=== PATIENT | male | born 1965 | race Caucasian/White ===

== ENCOUNTER 2018-12-30 05:40 | Inpatient (IN) | payer MEDICAID, OTHER ==
[~2018-12-30] VITALS: Ht 185.4 cm; Wt 102.2 kg
[~2018-12-30 05:40] MED LIST: ACET500C5 PO; AMOX500C2 PO; CIPR500T4 PO; IBUP800T48 PO
[2018-12-30] MEDS ORDERED: ONDANSETRON 4 MG INJ IV STA (06:20)
[2018-12-30] MEDS ORDERED: SODIUM CHLORIDE 0.9% 1L BAG IV* STA (06:20)
[2018-12-30] MEDS ORDERED: KETOROLAC 30 MG INJ IV STA (06:20)
[2018-12-30] MEDS ORDERED: SOD CHLORIDE 0.9% 100 ML ONE (07:17)
[2018-12-30] MEDS ORDERED: IOHEXOL 300MG/ML 150 ML BTL ONE (07:17)
[2018-12-30] MEDS ORDERED: CEFTRIAXONE 1 GM/50 ML (PMX) 50 ML IVPB ONE (08:30)
--- NOTE | 2018-12-30 08:42 | ERD ---
ER Documentation Chief Complaint Chief Complaint CHILLS, GENERALIZED BODY PAIN, FEVER, TESTICULAR PAIN XTODAY HPI 53-year-old male presenting with fevers and chills. Patient is testicular pain bilaterally with some mild abdominal pain. No vomiting. No change in bowel movement. Last dose of medication was taken 12 hours ago which was Tylenol. Has no cough and no runny nose. Diffuse body aches. Denies medical problems NKDA. Surgical history right knee. Social history smokes cigarettes and marijuana occasionally. ROS All systems reviewed and are negative except as per history of present illness. Allergies Allergies: Coded Allergies: No Known Allergy (Unverified , 12/30/18) PMhx/Soc Medical and Surgical Hx: pt denies Medical Hx History of Surgery: Yes (RIGHT KNEE SURGERY) Anesthesia Reaction: No Hx Neurological Disorder: No Hx Respiratory Disorders: No Hx Cardiac Disorders: No Hx Alcohol Use: No Hx Substance Use: No Hx Tobacco Use: Yes Smoking Status: Current some day smoker FmHx Family History: No diabetes, No coronary disease, No other Physical Exam Vitals Vital Signs Date Temp Pulse Resp B/P (MAP) Pulse Ox O2 O2 Flow FiO2 Time Delivery Rate 12/30/18 100.0 93 18 92/51 (65) 96 Room Air 08:27 12/30/18 102.4 109 19 119/66 98 05:43 (83) Physical Exam GENERAL: The patient is well-appearing, well-nourished, in no acute distress HEENT: Atraumatic. Conjunctivae are pink. Pupils equal, round, and reactive to light. There is no scleral icterus. Tympanic membranes clear bilaterally. Oropharynx clear. No nystagmus or photophobia. NECK: C-spine is soft and supple. There is no meningismus. There is no cervi jerome lymphadenopathy. No JVD. No bruits. No goiter. CHEST: Clear to auscultation bilaterally. There are no rales, wheezes or rhonchi. HEART: Regular rate and rhythm. No murmurs, clicks, rubs or gallops. No S3 or S4. ABDOMEN:Soft, nontender and nondistended. Good bowel sounds. No rebound or gu arding. No gross peritonitis. No gross organomegaly or masses. BACK: No midline or flank tenderness. TESTICULAR: No swelling or erythema to testicles. Mild diffuse tenderness. Result Diagram: 12/30/1862912/30/18629 Results 24 hrs Laboratory Tests Test 12/30/18 06:30 12/30/18 06:31 12/30/18 06:37 White Blood Count 20.6 10^3/ul Red Blood Count 4.99 10^6/ul Hemoglobin 14.8 g/dl Hematocrit 43.0 % Mean Corpuscular Volume 86.2 fl Mean Corpuscular Hemoglobin 29.7 pg Mean Corpuscular 34.4 g/dl Hemoglobin Concent Red Cell Distribution Width 13.1 % Platelet Count 259 10^3/UL Mean Platelet Volume 9.6 fl Immature Granulocytes % 0.500 % Neutrophils % 85.9 % Lymphocytes % 7.4 % Monocytes % 6.1 % Eosinophils % 0.0 % Basophils % 0.1 % Nucleated Red Blood Cells % 0.0 /100WBC Immature Granulocytes # 0.110 10^3/ul Neutrophils # 17.7 10^3/ul Lymphocytes # 1.5 10^3/ul Monocytes # 1.3 10^3/ul Eosinophils # 0.0 10^3/ul Basophils # 0.0 10^3/ul Nucleated Red Blood Cells # 0.0 10^3/ul Prothrombin Time 13.3 Sec Prothrombin Time Ratio 1.0 INR International 1.00 Normalized Ratio Activated Partial Thromboplast 26.8 Sec Time Sodium Level 138 mmol/L Potassium Level 3.8 mmol/L Chloride Level 106 mmol/L Carbon Dioxide Level 22 mmol/L Anion Gap 10 Blood Urea Nitrogen 11 mg/dl Creatinine 1.04 mg/dl Est Glomerular Filtrat > 60 mL/min Rate mL/min Glucose Level 138 mg/dl Calcium Level 9.4 mg/dl Total Bilirubin 1.1 mg/dl Direct Bilirubin 0.00 mg/dl Indirect Bilirubin 1.1 mg/dl Aspartate Amino 22 IU/L Transf (AST/SGOT) Alanine 25 IU/L Aminotransferase (ALT/SGPT) Alkaline Phosphatase 65 IU/L Total Protein 8.2 g/dl Albumin 4.2 g/dl Globulin 4.00 g/dl Albumin/Globulin Ratio 1.05 Lipase 38 U/L Urine Color YELLOW Urine Clarity CLEAR Urine pH 6.0 Urine Specific [place] 1.018 Urine Ketones TRACE mg/dL Urine Nitrite NEGATIVE mg/dL Urine Bilirubin NEGATIVE mg/dL Urine Urobilinogen NEGATIVE mg/dL Urine Leukocyte Esterase 2+ Wilma/ul Urine Microscopic RBC 4 /HPF Urine Microscopic WBC 45 /HPF Urine Mucus FEW /HPF Urine Hemoglobin NEGATIVE mg/dL Urine Glucose NEGATIVE mg/dL Urine Total Protein NEGATIVE mg/dl POC Venous Lactate 1.4 mmol/L Current Medications Medications Dose Sig/[place] Start Time Status Last (Trade) Ordered Route PRN Stop Time Admin Dose Reason Admin Sodium 3,050 ml BOLUS OVER 2 12/30/18 DC 12/30/18 Chloride HOURS STAT 06:20 06:42 (NS) IV* 12/30/18 06:23 Ketorolac 30 mg ONCE STAT 12/30/18 DC 12/30/18 Tromethamine IV 06:20 06:42 (Toradol) 12/30/18 06:23 Ondansetron 2 mg ONCE STAT 12/30/18 DC 12/30/18 HCl (Zofran IV 06:20 06:42 Inj) 12/30/18 06:23 IV Flush 10 ml STK-MED 12/30/18 DC 12/30/18 (NS 10 ml) ONCE .ROUTE 07:17 07:41 12/30/18 07:18 Sodium 100 ml @ ud STK-MED 12/30/18 DC 12/30/18 Chloride ONCE .ROUTE 07:17 07:41 12/30/18 07:18 Iohexol 150 ml STK-MED 12/30/18 DC 12/30/18 (Omnipaque ONCE .ROUTE 07:17 07:41 300mg/ ml) 12/30/18 07:18 Ceftriaxone 50 ml @ ONCE ONCE 12/30/18 Sodium 100 mls/hr IVPB 08:30 12/30/18 08:59 Procedures/MDM DIAGNOSTIC IMAGING REPORT Patient: BALWINDER URBINA : 1965 Age: 53 Sex: M MR #: [id number] DOS: 12/30/18 0620 Ordering MD: SOPHY CHILDERS PA-C Location: [facility] Room/Bed: PROCEDURE: CT ABDOMEN/PELVIS WITH CONTRAST CLINICAL INDICATION: 53-year-old male with bilateral flank pain. TECHNIQUE: The study was performed utilizing a Ozmosispeed VCT 64-slice CT scanner. Direct axial sections were obtained through the abdomen and pelvis wi th the use of 100 cc of Omnipaque-300 nonionic intravenous contrast material. Sagittal and coronal reformations were obtained. One or more of the following dose reduction techniques were utilized: automated exposure control, adjustment of the mA and/or kV according to patient's size and/or use of iterative reconstruction technique. DICOM images are available. The images were reviewed on a PACS workstation. CTD/vol = 20.7 mGy; Total Exam DLP = 1432.02 mGy.cm. COMPARISON: Ultrasound testicular December 30, 2018. FINDINGS: There is minimal bibasilar subsegmental atelectasis. There is no evidence for significant pleural effusion. The liver has a normal size and contour. The liver has diffuse decreased density consistent with fatty infiltration but without focal areas of abnormal density or contrast enhancement. No intrahepatic nor extrahepatic biliary ductal dilatation is seen. There is a lateral gallbladder without evidence for calcified stones, significant wall thickening or pericholecystic fluid. The pancreas is without areas of abnormal attenuation or contrast enhancement. This spleen is identified and has a normal size without abnormal density or contrast enhancement. The adrenal glands are unremarkable. The kidneys are functional bilaterally without abnormal density. No hydroureteronephrosis nor nephroureterolithiasis is evident. The urinary bladder is decompressed. There is no evidence for bowel obstruction. Multiple small diverticula seen throughout the colon most prominently within the sigmoid region without surrounding inflammatory changes. The appendix is visualized and is without edema or surrounding inflammatory reaction. There is no significant free fluid. Phleboliths are present within the pelvis. The prostate is mildly enlarged and heterogeneous measuring approximately 5.1 x 5.3 x 5.8 cm. There are minimal bilateral inguinal hernias containing fat. The aortoiliac vessels are without aneurysmal dilatation. Degenerative changes are seen at L5-S1. IMPRESSION: 1. Hepatic steatosis. 2. No CT evidence for obstructive uropathy or renal calculi. 3. Colonic diverticulosis. 4. No CT evidence for appendicitis. 5. Minimal bilateral inguinal hernias containing fat. 6. Mildly enlarged heterogeneous prostate. 7. Degenerative changes lower lumbar spine. DIAGNOSTIC IMAGING REPORT Patient: BALWINDER URBINA : 1965 Age: 53 Sex: M MR #: [id number] DOS: 12/30/18 0000 Ordering MD: SOPHY CHILDERS PA-C Location: E Room/Bed: PROCEDURE: US Scrotum. CLINICAL INDICATION: Bilateral testicular pain TECHNIQUE: Multiple sonographic images of the scrotal region were obtained utilizing a linear array transducer with grayscale and color-flow and a Doppler imaging. COMPARISON: No prior studies are available for comparison. FINDINGS: The testicles are normal in size with the right measuring 4.34 x 1.88 x 3.26 cm and the left measuring 4.38 x 1.89 x 2.79 cm. The testicular parenchymal echogenicity is normal bilaterally without focal lesions. Flow to both testicles without ultrasonic evidence of testicular torsion. The epididymal heads are normal in size the right measuring the right epididymis is enlarged measuring 1.2 x 0.92 x 2.22 cm and the left epididymis is normal in size measuring 1.0 x 0.82 x 0.73 cm. Within the right epididymal head is a 0.3 cm cyst. No other focal epididymal lesions. No hydroceles or varicoceles demonstrated. IMPRESSION: 1. Normal size testicles without focal lesions and no ultrasonic evidence of testicular torsion. 2. Enlarged right epididymis with 3 mm right epididymal head cyst. No other epididymal lesions bilaterally. 3. No hydroceles or varicoceles demonstrated. ER Course: Blood cultures and urine culture sent. Saline given 30 mgs per kg. on reevaluation's patient's blood pressure was 92/51. This case was discussed with Dr. Smith and there is concern for sepsis so patient will be admitted for IV antibiotics and observation. Toradol given in ED. Rocephin given in ED. Zofran given in ED. MDM: 53-year-old male presenting with fever. Patient exam is concerning for p rostatitis. I have low suspicion for severe sepsis however patient does meet criteria for sepsis and will be admitted for observation higher level of care. Patient is discharged with strict ER precautions and told to follow-up with primary care within 1 to 2 days for close evaluation. All questions answered at admission. I have considered testicular emergency versus other acute abdominal emergencies including but not limited to bowel obstruction septic stone or appendicitis. CT scan is within normal limits. Departure Diagnosis: Primary Impression: Prostatitis Additional Impression: Fever with chills Additional Instructions: FOLLOW UP WITH YOUR PRIMARY CARE PHYSICIAN TOMORROW.Return to this facility if you are not improving as expected. JHONNY CHILDERS PA-C Dec 30, 2018 08:42
[2018-12-30] MEDS ORDERED: NITROGLYCERIN (SL) 0.4 MG TAB SL PRN (12:00)
[2018-12-30] MEDS ORDERED: LORAZEPAM 2 MG INJ IV PRN (12:00)
[2018-12-30] MEDS ORDERED: DOCUSATE SODIUM 100 MG CAP PO PRN (12:00)
[2018-12-30] MEDS ORDERED: HYDROCODONE/APAP (5/325) TAB PO PRN (12:00)
[2018-12-30] MEDS ORDERED: morphine 2 MG INJ IV PRN (12:00)
[2018-12-30] MEDS ORDERED: ONDANSETRON 4 MG INJ IV PRN ×2 (12:00)
[2018-12-30] MEDS ORDERED: hydrALAzine 20 MG INJ IV PRN (12:00)
[2018-12-30] MEDS ORDERED: NACL 0.9% 3 ML SYG IV SCH (12:00)
[2018-12-30] MEDS ORDERED: ALBUTEROL/IPRATROPIUM (NEB) 3 ML AMP HHN PRN (12:00)
[2018-12-30] MEDS ORDERED: MAGNESIUM HYDROXIDE 30ML CUP PO PRN (12:00)
[2018-12-30] MEDS ORDERED: ACETAMINOPHEN 325 MG TAB PO PRN (12:00)
--- NOTE | 2018-12-30 14:53 | HP ---
Date/Time of Note Date/Time of Note DATE: 12/30/18 TIME: 14:46 Assessment/Plan VTE Prophylaxis SCD applied (from Nsg): Yes Pharmacological prophylaxis: NA/contraindicated Pharm contraindication: low risk/ambulating Lines/Catheters IV Catheter Type (from Nrsg): Peripheral IV Assessment/Plan Hospital Course Assessment and plan 1. UTI sepsis. Continue with antibiotics. Follow-up on final urine culture Antipyretics as needed for fever ID consult to follow pending clinical course 2. Obesity. Weight reduction is advised. 3. Leukocytosis Secondary to #1. Continue antibiotics 4. Mildly enlarged heterogeneous prostate per CT imaging Patient for outpatient follow-up Discussed POC with Dr. Farias Result Diagram: 12/30/18 0630 12/30/18 0630 Results 24hrs Laboratory Tests Test 12/30/18 06:30 12/30/18 06:31 12/30/18 06:37 12/30/18 08:30 White Blood Count 20.6 H Red Blood Count 4.99 Hemoglobin 14.8 Hematocrit 43.0 Mean Corpuscular 86.2 Volume Mean Corpuscular 29.7 Hemoglobin Mean Corpuscular 34.4 Hemoglobin Concent Red Cell 13.1 Distribution Width Platelet Count 259 Mean Platelet Volume 9.6 Immature 0.500 H Granulocytes % Neutrophils % 85.9 H Lymphocytes % 7.4 L Monocytes % 6.1 Eosinophils % 0.0 Basophils % 0.1 Nucleated Red Blood 0.0 Cells % Immature 0.110 H Granulocytes # Neutrophils # 17.7 H Lymphocytes # 1.5 Monocytes # 1.3 H Eosinophils # 0.0 Basophils # 0.0 Nucleated Red Blood 0.0 Cells # Prothrombin Time 13.3 Prothrombin Time 1.0 Ratio INR International 1.00 Normalized Ratio Activated 26.8 Partial Thromboplast Time Sodium Level 138 Potassium Level 3.8 Chloride Level 106 Carbon Dioxide Level 22 Anion Gap 10 Blood Urea Nitrogen 11 Creatinine 1.04 Est Glomerular > 60 Filtrat Rate mL/min Glucose Level 138 Calcium Level 9.4 Total Bilirubin 1.1 Direct Bilirubin 0.00 Indirect Bilirubin 1.1 Aspartate Amino 22 Transf (AST/SGOT) Alanine 25 Aminotransferase (AL T/SGPT) Alkaline Phosphatase 65 Total Protein 8.2 H Albumin 4.2 Globulin 4.00 H Albumin/Globulin 1.05 Ratio Lipase 38 Free Thyroxine 0.96 Urine Color YELLOW Urine Clarity CLEAR Urine pH 6.0 Urine Specific 1.018 [place] Urine Ketones TRACE A Urine Nitrite NEGATIVE Urine Bilirubin NEGATIVE Urine Urobilinogen NEGATIVE Urine Leukocyte 2+ H Esterase Urine Microscopic 4 RBC Urine Microscopic 45 H WBC Urine Mucus FEW A Urine Hemoglobin NEGATIVE Urine Glucose NEGATIVE Urine Total Protein NEGATIVE POC Venous Lactate 1.4 Lactic Acid Level 1.0 Test 12/30/18 10:30 Lactic Acid Level 0.9 HPI/ROS Admit Date/Time Admit Date/Time Hx of Present Illness This is a 53-year-old male with no significant past medical history who came to [facility] due to reports of increased fevers and chills and body ache. Patient reported that his symptoms started 1 day prior to admission. He was at work and he started to feel chills and body aches. He started to have some abdominal pain and some testicular pain. As such he went to the hospital the next day for further evaluation. He did have abdominal pelvic CT scan done that did show no obstructive uropathy or renal calculus. There was seen mildly enlarged heterogeneous prostate and minimal bilateral inguinal hernias containing fat. Testicular ultrasound showed normal-sized testicles without focal lesion or testicular torsion. There was seen enlarged right epididymis with 3 mm right epididymal head cyst. No other epididymal lesions bilaterally. White count was at 20,000. He also the fever as high as 102.4.. Denies any chest pain or shortness of breath or any other associated symptoms. We will evaluate him for the aformentiond issues. ROS 12 point review of systems obtained and entirely negative except as mentioned in history of present illness PMH/Family/Social Past Medical History Medical/surgical history 1. Right knee cartilage surgery Medications Current Medications IV Flush (NS 3 ml) 3 ml PER PROTOCOL IV ; Start 12/30/18 at 12:00 Ondansetron HCl (Zofran Inj) 4 mg Q6H PRN IV NAUSEA/VOMITING; Start 12/30/18 at 12:00 Acetaminophen (Tylenol Tab) 650 mg Q6H PRN PO .PAIN 1-3 OR TEMP; Start 12/30/18 at 12:00 Acetaminophen/ Hydrocodone Bitart ([place] (5/325)) 1 tab Q6H PRN PO .MOD PAIN 4- 6; Start 12/30/18 at 12:00 Morphine Sulfate (morphine) 2 mg Q4H PRN IV .SEVERE PAIN 7-10; Start 12/30/18 at 12:00 Docusate Sodium (Colace) 100 mg Q12H PRN PO .CONSTIPATION; Start 12/30/18 at 12:00 Magnesium Hydroxide (Milk Of Mag) 30 ml DAILY PRN PO .CONSTIPATION; Start 12/30/18 at 12:00 Heparin Sodium (Porcine) (Heparin (5000 Units/1ml)) 5,000 unit Q12 SC ; Start 12/30/18 at 21:00 Lorazepam (Ativan) 0.5 mg Q6H PRN IV ANXIETY; Start 12/30/18 at 12:00 Sodium Chloride 1,000 ml @ 100 mls/hr Q10H IV ; Start 12/30/18 at 11:55 Albuterol/ Ipratropium (Duoneb) 3 ml Q4H RESP THERAPY PRN HHN SHORTNESS OF BREATH; Start 12/30/18 at 12:00 Hydralazine HCl (Apresoline) 10 mg Q6H PRN IV ELEVATED BLOOD PRESSURE; Start 12/30/18 at 12:00 Nitroglycerin (Nitroglycerin (Sl Tab) 0.4 Mg) 1 tab Q5M PRN SL ANGINA; Start 12/30/18 at 12:00 Cefepime HCl 50 ml @ 100 mls/hr Q12 IVPB ; Start 12/30/18 at 21:00 Coded Allergies: No Known Allergy (Unverified , 12/30/18) Family History Significant Family History: no pertinent family hx Social History Denied any smoking drinking or drug use during interview Exam/Review of Systems Vital Signs Vitals Vital Signs Date Temp Pulse Resp B/P (MAP) Pulse Ox O2 O2 Flow FiO2 Time Delivery Rate 12/30/18 99.4 83 18 118/71 99 Room Air 10:36 (87) Exam Constitutional: alert, oriented Psych: nl mood/affect Head: normocephalic Eyes: nl conjunctiva Respiratory: normal air movement Cardiovascular: regular rate and rhythm Gastrointestinal: soft, non-tender Musculoskeletal: No swelling Neurological: [employer] II-XII intact, nl mental status, nl speech Skin: nl RADHA Davies NP Dec 30, 2018 14:53
[2018-12-30] MEDS: SOD CHLORIDE 0.9% 1,000 ML IV SCH ×2 (16:44→21:55)
[2018-12-30 16:51] VITALS: Ht 185.4 cm; Wt 102.2 kg
[2018-12-30] MEDS: ACETAMINOPHEN 325 MG TAB PO PRN (17:00)
--- NOTE | 2018-12-30 17:00 | CONS ---
DATE OF ADMISSION: 12/30/2018 DATE OF CONSULTATION: 12/30/2018 TYPE OF CONSULTATION: Infectious Disease. REASON FOR CONSULTATION: Antibiotic management. HISTORY OF PRESENT ILLNESS: Jacinto Hayes is a 53-year-old male who comes in with generalized body pain, chills and fever and testicular pain of 1 day's duration. The testicular pain is bilateral wit h some mild abdominal pain. No nausea, vomiting. Last dose of medication was taking 12 hours ago an d that was Tylenol. PAST SURGICAL HISTORY: He has had surgery to his right knee. PAST MEDICAL HISTORY: As outlined. FAMILY HISTORY: Noncontributory. No diabetes or coronary artery disease. SOCIAL HISTORY: He is a current every day smoker, does not drink or abuse drugs. ALLERGIES: NONE TO PENICILLIN, SULFA OR FOODS. MEDICATIONS: Per chart. REVIEW OF SYSTEMS: As per HPI. PHYSICAL EXAMINATION: GENERAL: The patient is a well-developed, well-nourished male who is alert, responsive, in no acute distress. VITAL SIGNS: T-max of 102.4, pulse of 109, respirations of 19, blood pressure 120/66. SKIN: Without generalized rash. HEENT: Within normal limits. NECK: Supple. LYMPH NODES: None palpable. CHEST: Decreased breath sounds at the bases. HEART: Without murmur or gallop. ABDOMEN: Soft, nontender, without organosplenomegaly or masses. EXTREMITIES: Without cyanosis, clubbing, or edema. GENITAL: He has no swelling or erythema to his testicles but he has diffuse tenderness. NEUROLOGIC: No focal neurological abnormality. ANCILLARY LABORATORY DATA: White count is 20.6 with 86% neutrophils, H and H 14.8 and 43, platelet c ount 259,000. BUN and creatinine 11/1.[address] scan of the abdomen and pelvis was done which shows hepatic steatosis. No CT evidence of obstructive uropathy or renal calculi, colonic diverticulosis. No CT evidence for appendicitis, minimal bilateral inguinal hernia containing fat, mildly enlarged heterogeneous prostate, degenerative changes of the lower lumbar spine. Ultrasound of the scrotum wh [facility] showed normal testicles without focal lesions. No ultrasonic evidence of testicular torsion and large right epididymis with a 3 mm right epididymal head cyst. No other epididymal lesions bilateral ly. No hydroceles or varicoceles. Blood cultures and urine cultures were sent. The patient was started on Rocephin. CT scan was bren l. The patient may have prostatitis. He is 53 years old. His urine is 2+ leukocyte esterase and 45 white cells per high-power field, so it is most likely that we are dealing with urinary tract infect ion since the ultrasound of the scrotum and the CT scan is benign. We will treat him with cefepime i n order to cover gram-negative rods, stop his ceftriaxone. I concur with the current therapy. I cesar l dictate my findings to the hospitalist if necessary. It may be worthwhile to have Dr. Hudson, uro logy, take a look at the patient. The CT scan does show mildly enlarged heterogeneous prostate as we ll. I will dictate my findings to the hospitalist. Dictated By: ALLA HUMPHRIES MD, JD/HERMES Conf#: [id number] DID#: [id number] CC: MARISSA LA;*EndCC*
[2018-12-30 20:00] VITALS: BP 104/64; PULSE 67; RESP 18
[2018-12-30 21:00] VITALS: BP 103/65; PULSE 82; RESP 18
[2018-12-30] MEDS: CEFEPIME 2GM/50 ML (PMX) 50 ML IVPB SCH (21:57)
[2018-12-30] MEDS: HEPARIN 5,000 UNIT/1 ML VIAL SC SCH (21:59)
[2018-12-31 02:00] VITALS: BP 114/50; PULSE 81; RESP 18
[2018-12-31] MEDS: ACETAMINOPHEN 325 MG TAB PO PRN ×2 (02:19→09:25)
[2018-12-31] MEDS: SOD CHLORIDE 0.9% 1,000 ML IV SCH ×3 (03:55→15:25)
[2018-12-31 08:00] VITALS: BP 89/53; PULSE 77; RESP 22
[2018-12-31] MEDS: CEFEPIME 2GM/50 ML (PMX) 50 ML IVPB SCH (08:52)
[2018-12-31] MEDS: HEPARIN 5,000 UNIT/1 ML VIAL SC SCH ×2 (08:57→20:55)
[2018-12-31 09:15] VITALS: BP 106/58
[2018-12-31] MEDS: GEMFIBROZIL 600 MG TAB PO SCH ×2 (13:46→20:54)
[2018-12-31 14:00] VITALS: BP 102/53; PULSE 76; RESP 20
[2018-12-31] MEDS ORDERED: CEFTRIAXONE 1 GM/50 ML (PMX) 50 ML IVPB SCH (14:00)
--- NOTE | 2018-12-31 15:18 | PN ---
Date/Time of Note Date/Time of Note DATE: 12/31/18 TIME: 15:15 Assessment/Plan VTE Prophylaxis Risk score (from Ns)>0 risk: 1 SCD applied (from Ns): Yes Pharmacological prophylaxis: NA/contraindicated Pharm contraindication: low risk/ambulating Lines/Catheters IV C[facility]ter Type (from [facility] Peripheral IV Urinary Cath still in place: No Assessment/Plan Hospital Course Assessment and plan 1. UTI sepsis. Continue with antibiotics. Follow-up on final urine culture Antipyretics as needed for fever ID consult to follow pending clinical course 2. Obesity. Weight reduction is advised. 3. Leukocytosis Secondary to #1. Continue antibiotics 4. Mildly enlarged heterogeneous prostate per CT imaging Patient for outpatient follow-up Disposition and plan. Awaiting final cultures. Continue with antibiotics. Follow-up with ID recommendations. Anticipate discharge within the next 24 hours if medically stable. Discussed POC with Dr. Farias Result Diagram: 12/31/18 0554 12/31/18 0555 Results 24hrs Laboratory Tests Test 12/30/18 16:55 12/30/18 18:16 12/30/18 23:31 12/31/18 05:54 Lactic Acid Level 1.4 0.9 1.0 White Blood Count 16.6 H Red Blood Count 4.28 L Hemoglobin 12.7 L Hematocrit 38.6 L Mean Corpuscular 90.2 Volume Mean Corpuscular 29.7 Hemoglobin Mean Corpuscular 32.9 Hemoglobin Concent Red Cell 13.5 Distribution Width Platelet Count 212 Mean Platelet Volume 9.7 Immature 0.500 H Granulocytes % Neutrophils % 76.6 Lymphocytes % 16.0 Monocytes % 6.5 Eosinophils % 0.2 Basophils % 0.2 Nucleated Red Blood 0.0 Cells % Immature 0.080 H Granulocytes # Neutrophils # 12.7 H Lymphocytes # 2.7 Monocytes # 1.1 H Eosinophils # 0.0 Basophils # 0.0 Nucleated Red Blood 0.0 Cells # Hemoglobin A1c 5.5 Triglycerides Level 246 H Cholesterol Level 179 LDL Cholesterol, 105 Calculated HDL Cholesterol 25 L Cholesterol/HDL 7.1 Ratio Thyroid Stimulating 0.968 Hormone (TSH) Test 12/31/18 05:55 Sodium Level 141 Potassium Level 4.1 Chloride Level 109 Carbon Dioxide Level 26 Anion Gap 6 Blood Urea Nitrogen 11 Creatinine 1.06 Est Glomerular > 60 Filtrat Rate mL/min Glucose Level 101 Calcium Level 8.3 L Phosphorus Level 2.9 Magnesium Level 2.1 Subjective 24 Hr Interval Summary Free Text/Dictation Patient with no dysuria at this time. Reports some lower abdominal discomfort Exam/Review of Systems Exam Vitals Vital Signs Date Temp Pulse Resp B/P (MAP) Pulse Ox O2 O2 Flow FiO2 Time Delivery Rate 12/31/18 97.9 76 20 102/53 93 14:00 (69) 12/30/18 Room Air 15:40 Intake and Output 12/30/18 12/30/18 12/31/18 1515:00 23:00 07:00 IntakeIntake Total 3100 ml 75 ml 1175 ml OutputOutput Total 300 ml 400 ml BalanceBalance 3100 ml -225 ml 775 ml Exam Constitutional: alert, oriented Psych: nl mood/affect Head: normocephalic Eyes: nl conjunctiva Respiratory: normal air movement Cardiovascular: regular rate and rhythm Gastrointestinal: soft, non-tender Musculoskeletal: No swelling Neurological: [employer] II-XII intact, nl mental status, nl speech Skin: nl turgor Results Results 24hrs Laboratory Tests Test 12/30/18 16:55 12/30/18 18:16 12/30/18 23:31 12/31/18 05:54 Lactic Acid Level 1.4 0.9 1.0 White Blood Count 16.6 H Red Blood Count 4.28 L Hemoglobin 12.7 L Hematocrit 38.6 L Mean Corpuscular 90.2 Volume Mean Corpuscular 29.7 Hemoglobin Mean Corpuscular 32.9 Hemoglobin Concent Red Cell 13.5 Distribution Width Platelet Count 212 Mean Platelet Volume 9.7 Immature 0.500 H Granulocytes % Neutrophils % 76.6 Lymphocytes % 16.0 Monocytes % 6.5 Eosinophils % 0.2 Basophils % 0.2 Nucleated Red Blood 0.0 Cells % Immature 0.080 H Granulocytes # Neutrophils # 12.7 H Lymphocytes # 2.7 Monocytes # 1.1 H Eosinophils # 0.0 Basophils # 0.0 Nucleated Red Blood 0.0 Cells # Hemoglobin A1c 5.5 Triglycerides Level 246 H Cholesterol Level 179 LDL Cholesterol, 105 Calculated HDL Cholesterol 25 L Cholesterol/HDL 7.1 Ratio Thyroid Stimulating 0.968 Hormone (TSH) Test 12/31/18 05:55 Sodium Level 141 Potassium Level 4.1 Chloride Level 109 Carbon Dioxide Level 26 Anion Gap 6 Blood Urea Nitrogen 11 Creatinine 1.06 Est Glomerular > 60 Filtrat Rate mL/min Glucose Level 101 Calcium Level 8.3 L Phosphorus Level 2.9 Magnesium Level 2.1 Medications Medication Current Medications IV Flush (NS 3 ml) 3 ml PER PROTOCOL IV ; Start 12/30/18 at 12:00 Ondansetron HCl (Zofran Inj) 4 mg Q6H PRN IV NAUSEA/VOMITING; Start 12/30/18 at 12:00 Acetaminophen (Tylenol Tab) 650 mg Q6H PRN PO .PAIN 1-3 OR TEMP Last a dministered on 12/31/18at 09:25; Admin Dose 650 MG; Start 12/30/18 at 12:00 Acetaminophen/ Hydrocodone Bitart ([place] (5/325)) 1 tab Q6H PRN PO .MOD PAIN 4- 6; Start 12/30/18 at 12:00 Morphine Sulfate (morphine) 2 mg Q4H PRN IV .SEVERE PAIN 7-10; Start 12/30/18 at 12:00 Docusate Sodium (Colace) 100 mg Q12H PRN PO .CONSTIPATION; Start 12/30/18 at 12:00 Magnesium Hydroxide (Milk Of Mag) 30 ml DAILY PRN PO .CONSTIPATION; Start 12/30/18 at 12:00 Heparin Sodium (Porcine) (Heparin (5000 Units/1ml)) 5,000 unit Q12 SC Last administered on 12/31/18at 08:57; Admin Dose 5,000 UNIT; Start 12/30/18 at 21:00 Lorazepam (Ativan) 0.5 mg Q6H PRN IV ANXIETY; Start 12/30/18 at 12:00 Sodium Chloride 1,000 ml @ 100 mls/hr Q10H IV Last administered on 12/31/18at 03:55; Admin Dose 100 MLS/HR; Start 12/30/18 at 11:55 Albuterol/ Ipratropium (Duoneb) 3 ml Q4H RESP THERAPY PRN HHN SHORTNESS OF BREATH; Start 12/30/18 at 12:00 Hydralazine HCl (Apresoline) 10 mg Q6H PRN IV ELEVATED BLOOD PRESSURE; Start 12/30/18 at 12:00 Nitroglycerin (Nitroglycerin (Sl Tab) 0.4 Mg) 1 tab Q5M PRN SL ANGINA; Start 12/30/18 at 12:00 Gemfibrozil (Lopid) 600 mg BID PO Last administered on 12/31/18at 13:46; Admin Dose 600 MG; Start 12/31/18 at 10:00 Ceftriaxone Sodium 50 ml @ 100 mls/hr Q24H IVPB Last administered on 12/31/18at 14:23; Admin Dose 100 MLS/HR; Start 12/31/18 at 14:00 RADHA WESLEY NP Dec 31, 2018 15:18
[2018-12-31 20:40] VITALS: BP 127/78; PULSE 62; RESP 18
[2019-01-01] MEDS: SOD CHLORIDE 0.9% 1,000 ML IV SCH ×2 (02:12→11:38)
[2019-01-01 02:39] VITALS: BP 116/76; PULSE 59; RESP 18
--- NOTE | 2019-01-01 06:26 | PN ---
DATE: 12/31/2018 SUBJECTIVE: The patient is alert, feels good. Denies pain. No fevers overnight. LABORATORY DATA: WBC today 16.6, no shift, no bands. BUN 11, creatinine 1.06. MICROBIOLOGY: Urine culture growing alpha hemolytic strep species. DIAGNOSTICS: CT of the abdomen and pelvis on admission revealed no obstructive uropathy or renal jerome culi. Please see full report in the chart. Testicular ultrasound revealed no lesions, no evidence o f testicular torsion and large right epididymitis with 3 mm right epididymal head cyst, no hydroceles or varicoceles. ANTIMICROBIALS: The patient is on cefepime. PHYSICAL EXAMINATION: GENERAL: Well-developed, well-nourished, middle-aged, man who is alert, in no distress. HEAD: Atraumatic, normocephalic. NECK: Supple. CHEST: Rise symmetrical. Breath sounds clear. HEART: S1, S2. ABDOMEN: Soft, bowel tones present. EXTREMITIES: Without cyanosis. ASSESSMENT: 1. Resolving sepsis, present on admission. 2. Urinary tract infection. PLAN: The patient remains stable. Urine culture preliminary growing gamma hemolytic strep species. Blood cultures negative. We are going to change antibiotics to IV Rocephin, await for final culture s and anticipate discharging him on oral antibiotics. Dictated By: INES NASH INSPECTOR [employer]ING for ALLA LONGO/NTS Conf#: [id number] DID#: [id number] CC: MARISSA LA;*EndCC*
[2019-01-01 08:18] VITALS: BP 112/74; PULSE 60; RESP 18
[2019-01-01] MEDS: GEMFIBROZIL 600 MG TAB PO SCH (09:26)
[2019-01-01] MEDS: HEPARIN 5,000 UNIT/1 ML VIAL SC SCH (09:27)
--- NOTE | 2019-01-01 11:31 | PDOCDIS ---
Discharge Instructions DIAGNOSIS Discharge Diagnosis 1. UTI sepsis. 2. Obesity 3. Leukocytosis 4. Mildly enlarged heterogeneous prostate CONDITION [id number] Patient Condition: [id number] Stable FOLLOW UP/APPOINTMENTS Follow-up Plan 1. Follow up with your primary care provider in one week RADHA WESLEY NP Jan 01, 2019 11:31
--- NOTE | 2019-01-01 11:52 | CONS ---
Assessment/Plan Assessment/Plan Hospital Course (Demo Recall) SUBJECTIVE: The patient is alert, feels good. No fevers overnight. MICROBIOLOGY: Urine culture growing alpha hemolytic strep species. DIAGNOSTICS: CT of the abdomen and pelvis on admission revealed no obstructive uropathy or renal calculi. Please see full report in the chart. Testicular ultrasound revealed no lesions, no evidence of testicular torsion and large right epididymitis with 3 mm right epididymal head cyst, no hydroceles or varicoceles. ANTIMICROBIALS: Rocephin PHYSICAL EXAMINATION: GENERAL: Well-developed, well-nourished, middle-aged, man who is harry rt, in no distress. HEAD: Atraumatic, normocephalic. NECK: Supple. CHEST: Rise symmetrical. Breath sounds clear. HEART: S1, S2. ABDOMEN: Soft, bowel tones present. EXTREMITIES: Without cyanosis. ASSESSMENT: 1. Resolving sepsis, present on admission. 2. Urinary tract infection. PLAN: The patient remains stable. Okay discharge on oral amoxicillin to complete 7 to 10 days Consultation Date/Type/Reason Admit Date/Time Dec 30, 2018 at 11:53 Initial Consult Date Type of Consult id Date/Time of Note DATE: 01/01/19 TIME: 11:51 Exam/Review of Systems Exam Vitals Vital Signs Date Temp Pulse Resp B/P (MAP) Pulse Ox O2 O2 Flow FiO2 Time Delivery Rate 01/01/19 98.7 60 18 112/74 97 08:18 (87) 12/30/18 Room Air 15:40 Intake and Output 12/31/18 12/31/18 01/01/19 1515:00 23:00 07:00 IntakeIntake Total 900 ml 1110 ml 1150 ml OutputOutput Total 700 ml 500 ml BalanceBalance 200 ml 610 ml 1150 ml Results Result Diagram: 01/01/19 0551 01/01/19 0551 Results 24hrs Laboratory Tests Test 01/01/19 05:51 White Blood Count 10.8 # Red Blood Count 3.94 L Hemoglobin 11.9 L Hematocrit 35.4 L Mean Corpuscular Volume 89.8 Mean Corpuscular Hemoglobin 30.2 Mean Corpuscular Hemoglobin Concent 33.6 Red Cell Distribution Width 13.2 Platelet Count 191 Mean Platelet Volume 10.4 Immature Granulocytes % 0.300 Neutrophils % 72.0 Lymphocytes % 19.0 Monocytes % 7.3 Eosinophils % 1.1 Basophils % 0.3 Nucleated Red Blood Cells % 0.0 Immature Granulocytes # 0.030 Neutrophils # 7.8 H Lymphocytes # 2.1 Monocytes # 0.8 Eosinophils # 0.1 Basophils # 0.0 Nucleated Red Blood Cells # 0.0 Sodium Level 139 Potassium Level 4.0 Chloride Level 109 Carbon Dioxide Level 23 Anion Gap 7 Blood Urea Nitrogen 9 Creatinine 0.90 Est Glomerular Filtrat Rate mL/min > 60 Glucose Level 90 Calcium Level 8.1 L Medications Medication Current Medications IV Flush (NS 3 ml) 3 ml PER PROTOCOL IV ; Start 12/30/18 at 12:00 Ondansetron HCl (Zofran Inj) 4 mg Q6H PRN IV NAUSEA/VOMITING; Start 12/30/18 at 12:00 Acetaminophen (Tylenol Tab) 650 mg Q6H PRN PO .PAIN 1-3 OR TEMP Last admin istered on 12/31/18at 09:25; Admin Dose 650 MG; Start 12/30/18 at 12:00 Acetaminophen/ Hydrocodone Bitart (Tram (5/325)) 1 tab Q6H PRN PO .MOD PAIN 4- 6 Last administered on 12/31/18at 19:51; Admin Dose 1 TAB; Start 12/30/18 at 12:00 Morphine Sulfate (morphine) 2 mg Q4H PRN IV .SEVERE PAIN 7-10; Start 12/30/18 at 12:00 Docusate Sodium (Colace) 100 mg Q12H PRN PO .CONSTIPATION; Start 12/30/18 at 1 2:00 Magnesium Hydroxide (Milk Of Mag) 30 ml DAILY PRN PO .CONSTIPATION; Start 12/30/18 at 12:00 Heparin Sodium (Porcine) (Heparin (5000 Units/1ml)) 5,000 unit Q12 SC Last administered on 01/01/19at 09:27; Admin Dose 5,000 UNIT; Start 12/30/18 at 21:00 Lorazepam (Ativan) 0.5 mg Q6H PRN IV ANXIETY; Start 12/30/18 at 12:00 Sodium Chloride 1,000 ml @ 100 mls/hr Q10H IV Last administered on 01/01/19at 11:38; Admin Dose 100 MLS/HR; Start 12/30/18 at 11:55 Albuterol/ Ipratropium (Duoneb) 3 ml Q4H RESP THERAPY PRN HHN SHORTNESS OF BREATH; Start 12/30/18 at 12:00 Hydralazine HCl (Apresoline) 10 mg Q6H PRN IV ELEVATED BLOOD PRESSURE; Start 12/30/18 at 12:00 Nitroglycerin (Nitroglycerin (Sl Tab) 0.4 Mg) 1 tab Q5M PRN SL ANGINA; Start 12/30/18 at 12:00 Gemfibrozil (Lopid) 600 mg BID PO Last administered on 01/01/19at 09:26; Admin Dose 600 MG; Start 12/31/18 at 10:00 Ceftriaxone Sodium 50 ml @ 100 mls/hr Q24H IVPB Last administered on 12/31/18at 14:23; Admin Dose 100 MLS/HR; Start 12/31/18 at 14:00 INES NASH NP Jan 01, 2019 11:52
--- NOTE | 2019-01-01 12:17 | DS ---
Date/Time of Note Date/Time of Note DATE: 01/01/19 TIME: 12:15 Discharge Summary Admission/Discharge Info Admit Date/Time Dec 30, 2018 at 11:53 Discharge Date/Time Discharge Diagnosis 1. UTI sepsis. 2. Obesity 3. Leukocytosis 4. Mildly enlarged heterogeneous prostate Patient Condition: Stable Hospital Course This is a 53-year-old male with no significant past medical history who came to [facility] due to reports of increased fevers and chills and body ache. Patient reported that his symptoms started 1 day prior to admission. He was at work and he started to feel chills and body aches. He started to have some abdominal pain and some testicular pain. As such he went to the hospital the next day for further evaluation. He did have abdominal pelvic CT scan done that did show no obstructive uropathy or renal calculus. There was seen mildly enlarged heterogeneous prostate and minimal bilateral inguinal hernias containing fat. Testicular ultrasound showed normal-sized testicles without focal lesion or testicular torsion. There was seen enlarged right epididymis with 3 mm right epididymal head cyst. No other epididymal lesions bilaterally. White count was at 20,000. He also had fevers as high as 102.4. He was seen by infectious disease consult. He was placed on antibiotics. Culture of urine did show gamma hemolytic strep species. He did have good response to antibiotics and his fevers did resolve. During his course of stay he did improve. He was advised for outpatient follow-up with his primary doctor. He was advised weight reduction for his obesity. He was also presc ribed antibiotic regimen upon DC. The plan of care was discussed with the patient and he verbalized understanding. On the day of discharge patient was in stable condition Discussed POC with Dr. Farias [place] Meds Active Scripts Amoxicillin* (Amoxicillin*) 500 Mg Cap, 500 MG PO Q8, #15 CAP Prov:RADHA WESLEY [employer] SUPERVISOR 01/01/19 Follow-up Plan 1. Follow up with your primary care provider in one week Primary Care Provider Care Physician No Primary Time spent on discharge: > 30 minutes Pending Labs Laboratory Tests Test 01/01/19 05:51 White Blood Count 10.8 10^3/ul (4.8-10.8) Red Blood Count 3.94 10^6/ul (4.70-6.10) Hemoglobin 11.9 g/dl (14.0-18.0) Hematocrit 35.4 % (42.0-52.0) Mean Corpuscular Volume 89.8 fl (82.0-101.0) Mean Corpuscular Hemoglobin 30.2 pg (29.0-33.0) Mean Corpuscular Hemoglobin Concent 33.6 g/dl (32.0-37.0) Red Cell Distribution Width 13.2 % (11.5-14.5) Platelet Count 191 10^3/UL (140-415) Mean Platelet Volume 10.4 fl (7.4-10.4) Immature Granulocytes % 0.300 % (0.001-0.429) Neutrophils % 72.0 % (39.0-77.0) Lymphocytes % 19.0 % (15.0-51.0) Monocytes % 7.3 % (0.0-11.0) Eosinophils % 1.1 % (0.0-7.0) Basophils % 0.3 % (0.0-2.0) Nucleated Red Blood Cells % 0.0 /100WBC (0.0-0.0) Immature Granulocytes # 0.030 10^3/ul (0.0-0.031) Neutrophils # 7.8 10^3/ul (1.6-7.5) Lymphocytes # 2.1 10^3/ul (0.8-2.9) Monocytes # 0.8 10^3/ul (0.3-0.9) Eosinophils # 0.1 10^3/ul (0.0-0.5) Basophils # 0.0 10^3/ul (0.0-0.1) Nucleated Red Blood Cells # 0.0 10^3/ul (0.0-0.0) Sodium Level 139 mmol/L (135-144) Potassium Level 4.0 mmol/L (3.5-5.1) Chloride Level 109 mmol/L (97-110) Carbon Dioxide Level 23 mmol/L (21-31) Anion Gap 7 (5-13) Blood Urea Nitrogen 9 mg/dl (7-20) Creatinine 0.90 mg/dl (0.61-1.24) Est Glomerular Filtrat Rate mL/min > 60 mL/min (>60) Glucose Level 90 mg/dl (70-220) Calcium Level 8.1 mg/dl (8.4-10.2) RADHA WESLEY NP Jan 01, 2019 12:17
== END 2019-01-01 14:07 | disposition home or self-care (01) | DRG 872 ==
LOC: FTE 05:40 → PP2 11:53
PROVIDERS: ADMIT Hospitalist; ATTEND Hospitalist
DX: A41.9 Sepsis, unspecified organism (principal); N39.0 Urinary tract infection, site not specified; E66.9 Obesity, unspecified; Z68.29 Body mass index [BMI] 29.0-29.9, adult; N40.0 Benign prostatic hyperplasia without lower urinary tract symptoms; N50.3 Cyst of epididymis
CPT/HCPCS: 36415; 74177; 76870; 80048; 80053; 80061; 81001; 83036; 83605; 83690; 83735; 84100; 84439; 84443; 85025; 85610; 85730; 87086; 87591; 96361; 96365; 96375; J0692; J0696; J1644; J1885; J2405; J7030; Q9967